=== PATIENT | female | born 1970 ===

== ENCOUNTER 2017-04-23 13:31 | Emergency (ER) | payer BC ==
--- NOTE | 2017-04-23 13:42 | EDM.PDOC ---
ED HPI GENERAL MEDICAL PROBLEM - General Chief Complaint: Chest Pain Stated Complaint: CHEST PAIN Time Seen by Provider: 04/23/17 13:35 - History of Present Illness INITIAL COMMENTS - FREE TEXT/NARRATIVE: 47-year-old female presents emergency room with chest pain. This chest pain has been going on for 2-1/2-3 hours. It is substernal radiating up into her jaw bilaterally. She does not have associated shortness of breath. The pain is quite severe at this point she rates it at a 8 or 9/10. The patient does not have a history of coronary artery disease. Family history is significant for heart attacks in both her parents her mother's was at approximately the patient's age now her father was a little older. The patient is not treated with any medications however has a history of 2 diabetes diet controlled her last hemoglobin A1c was 6.7. The patient does smoke she is not a heavy smoker she quit back in December and then started up again. - Related Data Allergies Allergy/AdvReac Type Severity Reaction Status Date / Time codeine Allergy Rash Verified 04/23/17 14:33 Sulfa (Sulfonamide Allergy Vomiting Verified 04/23/17 14:33 Antibiotics) Home Meds: Home Meds . [No Known Home Meds] 01/22/14 [History] Social & Family History - Alcohol Use Days Per Week of Alcohol Use: 0 - Recreational Drug Use Recreational Drug Use: No ED ROS GENERAL - Review of Systems Review Of Systems: See Below Constitutional: Reports: No Symptoms. Denies: Fever, Chills HEENT: Reports: No Symptoms Respiratory: Denies: Shortness of Breath, Cough, Sputum Cardiovascular: Reports: Chest Pain. Denies: Edema GI/Abdominal: Reports: No Symptoms : Reports: No Symptoms Neurological: Reports: No Symptoms ED EXAM, GENERAL - Physical Exam Exam: See Below Exam Limited By: No Limitations General Appearance: Alert, Moderate Distress Head: Atraumatic, Normocephalic Neck: Normal Inspection, Supple, Non-Tender, Full Range of Motion. No: Lymphadenopathy (L), Lymphadenopathy (R) Respiratory/Chest: No Respiratory Distress, Lungs Clear, Normal Breath Sounds Cardiovascular: Regular Rate, Rhythm, No Edema, No Murmur, Tachycardia (Mild) GI/Abdominal: Normal Bowel Sounds, Soft, Non-Tender, Other (Obese) Extremities: Normal Inspection, No Pedal Edema Neurological: Alert, Oriented, Normal Cognition EKG INTERPRETATION EKG Date: 04/23/17 Rhythm: Other (Sinus tach rate 108) [place]: LAD-Left Whitfield Deviation P-Wave: Present QRS: Other (Distorted with acute ST changes) ST-T: Other (Diagnostic ST elevation anteriorly with reciprocal changes inferiorly and laterally) QT: Normal Comparison: NA - No Prior EKG EKG Interpretation Comments: Abnormal EKG acute STEMI Course - Orders/Labs/Meds Orders: Active Orders 24 hr Category Date Time Status Chest 1V Frontal [CR] Stat Exams 04/23/17 13:42 Taken Labs: Laboratory Tests 04/23/17 04/23/17 04/23/17 Range/Units 13:40 13:40 13:42 WBC 13.10 H (3.98-10.04) K/mm3 RBC 5.55 H (3.98-5.22) M/mm3 Hgb 10.9 L (11.2-15.7) gm/L Hct 38.1 (34.1-44.9) % MCV 68.6 L (79.4-94.8) fl MCH 19.6 L (25.6-32.2) pg MCHC 28.6 L (32.2-35.5) g/dl RDW Std Deviation 48.3 H (36.4-46.3) fL Plt Count 354 (182-369) K/mm3 MPV 10.9 (9.4-12.3) fl Neutrophils % (Manual) 62 H (40-60) % Band Neutrophils % 0 (0-10) % Lymphocytes % (Manual) 30 (20-40) % Atypical Lymphs % 0 % Monocytes % (Manual) 7 (2-10) % Eosinophils % (Manual) 1 (0.7-5.8) % Basophils % (Manual) 0 L (0.1-1.2) Platelet Estimate Adequate Plt Morphology Comment Normal Polychromasia 1+ slight Hypochromasia 2+ moderate Anisocytosis 1+ slight Microcytosis 2+ moderate RBC Morph Comment Not Reportable PT 9.5 (8.0-13.0) SECONDS INR 0.88 APTT 23 (22-36) SECONDS Sodium 140 (136-145) mEq/L Potassium 4.1 (3.5-5.1) mEq/L Chloride 104 (98-107) mEq/L Carbon Dioxide 24 (21-32) mEq/L Anion Gap 16.1 H (5-15) BUN 17 (7-18) mg/dL Creatinine 1.0 (0.55-1.02) mg/dL Est Cr Clr Drug Dosing TNP Estimated GFR (MDRD) 60 (>60) mL/min BUN/Creatinine Ratio 17.0 (14-18) Glucose 189 H (74-106) mg/dL Calcium 9.1 (8.5-10.1) mg/dL Total Bilirubin 0.3 (0.2-1.0) mg/dL AST 22 (15-37) U/L ALT 26 (14-59) U/L Alkaline Phosphatase 89 (46-116) U/L Troponin I 2.364 H* (0.00-0.056) ng/mL Total Protein 8.4 H (6.4-8.2) g/dl Albumin 3.8 (3.4-5.0) g/dl Globulin 4.6 gm/dL Albumin/Globulin Ratio 0.8 L (1-2) Meds: Medications Discontinued Medications Generic Name Dose Route Start Last Admin Trade Name Lyndonq PRN Reason Stop Dose Admin Aspirin Confirm 04/23/17 14:06 Aspirin Administered 04/23/17 14:07 Dose 324 mg .ROUTE .STK-MED ONE Clopidogrel Bisulfate Confirm 04/23/17 14:07 Plavix Administered 04/23/17 14:08 Dose 75 mg .ROUTE .STK-MED ONE Clopidogrel Bisulfate Confirm 04/23/17 14:08 Plavix Administered 04/23/17 14:09 Dose 225 mg .ROUTE .STK-MED ONE Heparin Sodium (Porcine) Confirm 04/23/17 14:00 Heparin Sodium Administered 04/23/17 14:01 Dose 5,000 units .ROUTE .STK-MED ONE Heparin Sodium/Dextrose Confirm 04/23/17 14:01 Heparin 25,000 Units In D5w 500 Ml Administered 04/23/17 14:02 Dose 500 mls @ as directed .ROUTE .STK-MED ONE Nitroglycerin/Dextrose Confirm 04/23/17 14:21 Nitroglycerin 25 Mg/D5w 250 Ml Administered 04/23/17 14:22 Dose 25 mg in 250 mls @ as directed .ROUTE .STK-MED ONE Metoprolol Tartrate Confirm 04/23/17 14:41 Lopressor Administered 04/23/17 14:42 Dose 50 mg .ROUTE .STK-MED ONE Morphine Sulfate Confirm 04/23/17 13:51 Morphine Administered 04/23/17 13:52 Dose 4 mg .ROUTE .STK-MED ONE Morphine Sulfate Confirm 04/23/17 14:29 Morphine Administered 04/23/17 14:30 Dose 4 mg .ROUTE .STK-MED ONE Nitroglycerin Confirm 04/23/17 13:50 Nitrostat Administered 04/23/17 13:51 Dose 0.4 mg .ROUTE .STK-MED ONE Tenecteplase Confirm 04/23/17 13:49 Tnkase Administered 04/23/17 13:50 Dose 50 mg .ROUTE .STK-MED ONE - Re-Assessments/Exams Free Text/Narrative Re-Assessment/Exam: 04/23/17 14:49 Early on it was recognized patient was 9 with appears to be an acute STEMI case was discussed early with [facility] Graham Stover and Dr. Yung. Patient was started on early nitroglycerin and aspirin. She did have some improvement with nitroglycerin. On the legs were ordered as quickly as a chest x-ray was reviewed the chest x-ray is rotated however the aorta can be visualized and does not appear to be abnormal. After confirming no contraindications tablets were given. Prior given thrombolytics we did discuss the risks and benefits of tablets with the patient and her who verbally gave permission to use this. Patient was started on a heparin bolus and heparin drip. She had return of her pain this was followed up with sublingual nitroglycerin and later nitro drip she was given supplemental morphine. At this time the patient is been loaded up by the [place] flight crew. Patient is in stable but guarded condition Departure - Departure Time of Disposition: 14:53 Disposition: DC/Tfer to Acute Hospital 02 Reason for Transfer *Q: Other Clinical Impression: Acute myocardial infarction Referrals: PCP,None [Primary Care Provider] - Forms: ED Department Discharge - My Orders Last 24 Hours: My Active Orders 04/23/17 13:42 Chest 1V Frontal [CR] Stat - Assessment/Plan Last 24 Hours: My Active Orders 04/23/17 13:42 Chest 1V Frontal [CR] Stat
[2017-04-23] MEDS ORDERED: Morphine 2 MG/ML Syringe ONE (13:49)
[2017-04-23] MEDS ORDERED: Heparin Sodium 5,000 Units/ML Vial ONE ×2 (13:49→14:00)
[2017-04-23] MEDS ORDERED: Clopidogrel 75 MG Tab ONE ×3 (13:49→14:08)
[2017-04-23] MEDS ORDERED: Metoprolol Tartrate 25 MG Tab ONE (13:49)
[2017-04-23] MEDS ORDERED: Nitroglycerin 0.4 MG Tab.SL ONE ×2 (13:49→13:50)
[2017-04-23] MEDS ORDERED: Aspirin 81 MG Tab.Chew ONE ×2 (13:49→14:06)
[2017-04-23] MEDS ORDERED: Tenecteplase 50 MG Kit ONE ×2 (13:49)
[2017-04-23] MEDS ORDERED: Morphine 4 MG/ML Syringe ONE ×2 (13:51→14:29)
[2017-04-23] MEDS ORDERED: Heparin Sodium/D5W 500 ML ONE (14:01)
[2017-04-23] MEDS ORDERED: Heparin Sodium/D5W 500 ML IV ONE (14:02)
[2017-04-23] MEDS ORDERED: Nitroglycerin/D5W 25 MG/250 ML BOTTLE ONE (14:21)
[2017-04-23] MEDS ORDERED: Nitroglycerin/D5W 25 MG/250 ML BOTTLE IV ONE (14:22)
[2017-04-23] MEDS ORDERED: Metoprolol Tartrate 50 MG Tab ONE (14:41)
[2017-04-23 15:49] VITALS: BP 149/113
--- NOTE | 2017-04-24 08:00 | CR ---
Chest: Portable view of the chest was obtained. Comparison: Previous chest x-ray of 01/22/14. Heart size is enlarged. Pulmonary vessels are mildly congested. Old healed right upper rib fracture is noted. Impression: 1. Findings which are felt compatible with mild CHF. Diagnostic code #3
== END 2017-04-23 15:05 ==
LOC: JD.ED 13:31
DX: I21.3 ST elevation (STEMI) myocardial infarction of unspecified site (principal); E11.9 Type 2 diabetes mellitus without complications; Z88.5 Allergy status to narcotic agent; Z88.2 Allergy status to sulfonamides
CPT/HCPCS: 36415; 71010; 80053; 84484; 85025; 85610; 85730; 93005; 96361; 96365; 96368; 96374; 96375; 96376; 99285; A9270; J1644; J2270; J3101

== ENCOUNTER 2017-05-09 09:26 | Emergency (ER) | payer BC ==
[2017-05-09 09:39] VITALS: BP 108/66
[2017-05-09] MEDS ORDERED: Sodium Chloride 0.9% 10 ML Syringe FLUSH PRN (10:03)
[2017-05-09] MEDS ORDERED: Sodium Chloride 0.9% 1,000 ML IV SCH (10:15)
--- NOTE | 2017-05-09 11:17 | CR ---
Chest: Frontal view of the chest was obtained. Comparison: Previous chest x-ray of 04/23/16. Heart size slightly enlarged. Pulmonary vessels are mildly congested. Findings are stable from previous exam. Old healed rib deformity noted within the upper right chest. Impression: 1. Findings as described above. No significant change is seen from prior chest x-ray. Diagnostic code #3
[2017-05-09] MEDS ORDERED: Aspirin 81 MG Tab.Chew PO ONE (11:39)
--- NOTE | 2017-05-09 11:43 | EDM.PDOC ---
ED HPI GENERAL MEDICAL PROBLEM - General Chief Complaint: Cardiovascular Problem Stated Complaint: LOW BP-SENT FROM CLINIC Time Seen by Provider: 05/09/17 09:32 Source of Information: Reports: Patient History Limitations: Reports: No Limitations - History of Present Illness INITIAL COMMENTS - FREE TEXT/NARRATIVE: The patient presents from the clinic with a low blood pressure. The patient was seen here April 23 and she was found to have a nonSTEMI with a troponin of 2.34. She was sent to [place] in [place] and Dr Stover the main line station engineer manager of organizational development did a heart cath and she got stents. She was doing good. She is from [facility] by [place] and she came to [facility] today for a doctors appointment. She said she had some shortness of breath last night and today. She was also lightheaded. She went to see her provider Krystal Alvarez and the patient's blood pressure was low at 70 systolic. They brought her over here. She denies any chest pain. She has no fever, chills, cough, congestion or runny nose. She has no abdominal pain, nausea or vomiting. Onset: Gradual Duration: Day(s): (Last night) Severity: Mild Improves with: Reports: None Worsens with: Reports: None Associated Symptoms: Reports: Shortness of Breath. Denies: Chest Pain, Cough, Fever/Chills, Headaches, Nausea/Vomiting - Related Data Allergies Allergy/AdvReac Type Severity Reaction Status Date / Time codeine Allergy Rash Verified 05/09/17 09:34 Sulfa (Sulfonamide AdvReac Vomiting Verified 05/09/17 12:12 Antibiotics) Home Meds: Home Meds Aspirin [Ecotrin] 81 mg PO DAILY 05/05/17 [History] Clopidogrel Bisulfate [Clopidogrel] 75 mg PO DAILY 05/05/17 [History] Metoprolol Tartrate [Metoprolol Tartrate] 50 mg PO BID 05/05/17 [History] Nitroglycerin [Nitroglycerin] 0.4 mg SL ASDIRECTED PRN 05/05/17 [History] Pantoprazole Sodium [Pantoprazole Sodium] 40 mg PO DAILY 05/05/17 [History] Valsartan [Valsartan] 40 mg PO DAILY 05/05/17 [History] atorvaSTATin Calcium [Atorvastatin Calcium] 40 mg PO DAILY 05/05/17 [History] Past Medical History Cardiovascular History: Reports: High Cholesterol, HI, Stents [employer] History: Reports: Endocrine/Metabolic History: Reports: Other (See Below) Other Endocrine/Metabolic History: Runs elevated AIC of 5.8 and is controlling it with diet and exercise - Past Surgical History HEENT Surgical History: Reports: Tonsillectomy GI Surgical History: Reports: Appendectomy Female Surgical History: Reports: Section Social & Family History - Tobacco Use Smoking Status *Q: Former Smoker Years of Tobacco use: 30 Packs/Tins Daily: 0.5 Used Tobacco, but Quit: Yes Month Tobacco Last Used: march - Caffeine Use Caffeine Use: Reports: Soda - Alcohol Use Days Per Week of Alcohol Use: 0 - Recreational Drug Use Recreational Drug Use: No ED ROS GENERAL - Review of Systems Review Of Systems: See Below Constitutional: Reports: No Symptoms HEENT: Reports: No Symptoms Respiratory: Reports: Shortness of Breath. Denies: Cough Cardiovascular: Reports: Lightheadedness. Denies: Chest Pain Endocrine: Reports: No Symptoms GI/Abdominal: Reports: No Symptoms : Reports: No Symptoms Musculoskeletal: Reports: No Symptoms Skin: Reports: No Symptoms ED EXAM, GENERAL - Physical Exam Exam: See Below Exam Limited By: No Limitations General Appearance: Alert, No Apparent Distress Ears: Normal External Exam Nose: Normal Inspection Head: Atraumatic, Normocephalic Neck: Normal Inspection Respiratory/Chest: No Respiratory Distress, Lungs Clear, Normal Breath Sounds Cardiovascular: Regular Rate, Rhythm, No Edema, No Murmur GI/Abdominal: Soft, Non-Tender, No Organomegaly, No Mass Back Exam: Normal Inspection Extremities: Normal Inspection Neurological: Alert, Oriented, No Motor/Sensory Deficits EKG INTERPRETATION EKG Date: 05/09/17 Time: 10:20 Rhythm: NSR Rate (Beats/Min): 73 [place]: Normal P-Wave: Present QRS: Wide (Nonspecific intraventricular conduction delay) ST-T: Normal QT: Normal EKG Interpretation Comments: Q waves in the anterior leads with flattened T waves in the lateral leads Course - Vital Signs Last Recorded V/S: Last Vital Signs Temp 98.3 F 05/09/17 09:35 Pulse 73 05/09/17 09:35 Resp 13 05/09/17 09:35 BP 108/66 05/09/17 09:35 Pulse Ox 99 05/09/17 09:35 - Orders/Labs/Meds Orders: Active Orders 24 hr Category Date Time Status Cardiac Monitoring [RC] . DIRECTED Care 05/09/17 10:03 Active EKG 12 Lead [EKG Documentation Completion] [RC] STAT Care 05/09/17 11:19 Active EKG Documentation Completion [RC] STAT Care 05/09/17 10:04 Active Peripheral IV Care [RC] . DIRECTED Care 05/09/17 10:04 Active CBC W/O DIFF,HEMOGRAM [HEME] MOTH@0700 Lab 05/11/17 07:00 Ordered CBC W/O DIFF,HEMOGRAM [HEME] MOTH@0700 Lab 05/15/17 07:00 Ordered CBC W/O DIFF,HEMOGRAM [HEME] MOTH@0700 Lab 05/18/17 07:00 Ordered CBC W/O DIFF,HEMOGRAM [HEME] MOTH@0700 Lab 05/22/17 07:00 Ordered CBC W/O DIFF,HEMOGRAM [HEME] MOTH@0700 Lab 05/25/17 07:00 Ordered CBC W/O DIFF,HEMOGRAM [HEME] MOTH@0700 Lab 05/29/17 07:00 Ordered Heparin Sodium/D5W [Heparin 25,000 Units in D5W 500 ML] Med 05/09/17 12:15 Active 25,000 units in 500 ml IV TITRATE Sodium Chloride 0.9% [Normal Saline] 1,000 ml Med 05/09/17 10:15 Active IV .BOLUS Sodium Chloride 0.9% [Saline Flush] Med 05/09/17 10:03 Active 10 ml FLUSH ASDIRECTED PRN Peripheral IV Insertion Adult [OM.PC] Stat Oth 05/09/17 10:03 Ordered Medication Orders Sodium Chloride (Normal Saline) 1,000 mls @ 1,000 mls/hr IV .BOLUS REUBEN Last Admin: 05/09/17 10:44 Dose: 1,000 mls/hr Heparin Sodium/Dextrose (Heparin 25,000 Units In D5w 500 Ml) 25,000 units in 500 mls @ 0 mls/hr IV TITRATE REUBEN; 9 UNITS/KG/HR PRN Reason: Protocol Last Admin: 05/09/17 12:18 Dose: 20 mls/hr Sodium Chloride (Saline Flush) 10 ml FLUSH ASDIRECTED PRN PRN Reason: Keep Vein Open Last Admin: 05/09/17 10:42 Dose: 10 ml Labs: Laboratory Tests 05/09/17 05/09/17 05/09/17 Range/Units 09:40 09:40 09:40 WBC 10.96 H (3.98-10.04) K/mm3 RBC 4.76 (3.98-5.22) M/mm3 Hgb 9.3 L (11.2-15.7) gm/L Hct 33.7 L (34.1-44.9) % MCV 70.8 L (79.4-94.8) fl MCH 19.5 L (25.6-32.2) pg MCHC 27.6 L (32.2-35.5) g/dl RDW Std Deviation 50.5 H (36.4-46.3) fL Plt Count 432 H (182-369) K/mm3 MPV 11.2 (9.4-12.3) fl Neut % (Auto) 67.1 (34.0-71.1) % Lymph % (Auto) 23.9 (19.3-51.7) % [place] % (Auto) 6.3 (4.7-12.5) % Eos % (Auto) 2.2 (0.7-5.8) Baso % (Auto) 0.3 (0.1-1.2) % Neut # (Auto) 7.36 H (1.56-6.13) K/mm3 Lymph # (Auto) 2.62 (1.18-3.74) K/mm3 [place] # (Auto) 0.69 H (0.24-0.36) K/mm3 Eos # (Auto) 0.24 (0.04-0.36) K/mm3 Baso # (Auto) 0.03 (0.01-0.08) K/mm3 Manual Slide Review Abnormal smear Sodium 142 (136-145) mEq/L Potassium 4.2 (3.5-5.1) mEq/L Chloride 108 H (98-107) mEq/L Carbon Dioxide 26 (21-32) mEq/L Anion Gap 12.2 (5-15) BUN 19 H (7-18) mg/dL Creatinine 1.2 H (0.55-1.02) mg/dL Est Cr Clr Drug Dosing 53.27 mL/min Estimated GFR (MDRD) 49 (>60) mL/min BUN/Creatinine Ratio 15.8 (14-18) Glucose 143 H (74-106) mg/dL Calcium 8.9 (8.5-10.1) mg/dL Total Bilirubin 0.6 (0.2-1.0) mg/dL AST 18 (15-37) U/L ALT 18 (14-59) U/L Alkaline Phosphatase 75 (46-116) U/L Troponin I 0.785 H* (0.00-0.056) ng/mL NT-Pro-B Natriuret Pep 3630 H (0-125) pg/mL Total Protein 8.0 (6.4-8.2) g/dl Albumin 3.4 (3.4-5.0) g/dl Globulin 4.6 gm/dL Albumin/Globulin Ratio 0.7 L (1-2) HCG, Qual Negative (NEGATIVE) Meds: Medications Generic Name Dose Route Start Last Admin Trade Name Freq PRN Reason Stop Dose Admin Sodium Chloride 1,000 mls @ 1,000 mls/hr 05/09/17 10:15 05/09/17 10:44 Normal Saline IV 1,000 mls/hr .BOLUS REUBEN Administration Heparin Sodium/Dextrose 25,000 units in 500 mls @ 0 mls/hr 05/09/17 12:15 08/13 12:18 Heparin 25,000 Units In D5w 500 Ml IV 20 mls/hr TITRATE REUBEN Administration Protocol 9 UNITS/KG/HR Sodium Chloride 10 ml 05/09/17 10:03 05/09/17 10:42 Saline Flush FLUSH 10 ml ASDIRECTED PRN Administration Keep Vein Open Discontinued Medications Generic Name Dose Route Start Last Admin Trade Name Freq PRN Reason Stop Dose Admin Aspirin 324 mg 05/09/17 11:39 05/09/17 11:46 Aspirin PO 05/09/17 11:40 324 mg ONETIME ONE Administration Heparin Sodium (Porcine) 5,000 units 05/09/17 12:04 05/09/17 12:13 Heparin Sodium IVPUSH 05/09/17 12:05 5,000 units ONETIME ONE Administration - Re-Assessments/Exams Free Text/Narrative Re-Assessment/Exam: 05/09/17 12:27 I ordered an IV NS 1L bolus, labs, EKG, and CXR. Her CXR looks good. Her EKG shows a NSR with no acute changes. Her CBC was elevated at 10.96. Her creatinine was elevated at 1.2. Her glucose was elevated at 143. Her troponin was elevated at 0.785. Her BNP was elevated at 3630. I am concerned she may be having an HI. I ordered aspirin. I called Dr Posada the main line station engineer manager of organizational development at [place] and he thought this could be another nonSTEMI. He requested she come down to [place]. I talked with the hospitalist Dr Fung and he also accepted the patient. I ordered a heparin bolus and drip. Departure - Departure Time of Disposition: 12:35 Disposition: DC/Tfer to [facility] 02 Reason for Transfer *Q: Other Condition: Serious Clinical Impression: Non-STEMI (non-ST elevated myocardial infarction), Elevated brain natriuretic peptide (BNP) level, SOB (shortness of breath) Referrals: PCP,None [Primary Care Provider] - Forms: ED Department Discharge - My Orders Last 24 Hours: My Active Orders 05/09/17 10:03 Cardiac Monitoring [RC] . DIRECTED Sodium Chloride 0.9% [Saline Flush] 10 ml FLUSH ASDIRECTED PRN Peripheral IV Insertion Adult [OM.PC] Stat 05/09/17 10:04 EKG Documentation Completion [RC] STAT Peripheral IV Care [RC] . DIRECTED 05/09/17 10:15 Sodium Chloride 0.9% [Normal Saline] 1,000 ml IV .BOLUS 05/09/17 11:19 EKG 12 Lead [EKG Documentation Completion] [RC] STAT 05/09/17 12:15 Heparin Sodium/D5W [Heparin 25,000 Units in D5W 500 ML] 25,000 units in 500 ml IV TITRATE 05/11/17 07:00 CBC W/O DIFF,HEMOGRAM [HEME] MOTH@0700 05/15/17 07:00 CBC W/O DIFF,HEMOGRAM [HEME] MOTH@00 05/18/17 07:00 CBC W/O DIFF,HEMOGRAM [HEME] MOTH@0700 05/22/17 07:00 CBC W/O DIFF,HEMOGRAM [HEME] MOTH@0700 05/25/17 07:00 CBC W/O DIFF,HEMOGRAM [HEME] MOTH@0700 05/29/17 07:00 CBC W/O DIFF,HEMOGRAM [HEME] MOTH@0700 - Assessment/Plan Last 24 Hours: My Active Orders 05/09/17 10:03 Cardiac Monitoring [RC] . DIRECTED Sodium Chloride 0.9% [Saline Flush] 10 ml FLUSH ASDIRECTED PRN Peripheral IV Insertion Adult [OM.PC] Stat 05/09/17 10:04 EKG Documentation Completion [RC] STAT Peripheral IV Care [RC] . DIRECTED 05/09/17 10:15 Sodium Chloride 0.9% [Normal Saline] 1,000 ml IV .BOLUS 05/09/17 11:19 EKG 12 Lead [EKG Documentation Completion] [RC] STAT 05/09/17 12:15 Heparin Sodium/D5W [Heparin 25,000 Units in D5W 500 ML] 25,000 units in 500 ml IV TITRATE 05/11/17 07:00 CBC W/O DIFF,HEMOGRAM [HEME] MOTH@0700 05/15/17 07:00 CBC W/O DIFF,HEMOGRAM [HEME] MOTH@0700 05/18/17 07:00 CBC W/O DIFF,HEMOGRAM [HEME] MOTH@0705/22/17 07:00 CBC W/O DIFF,HEMOGRAM [HEME] MOTH@0700 05/25/17 07:00 CBC W/O DIFF,HEMOGRAM [HEME] MOTH@0700 05/29/17 07:00 CBC W/O DIFF,HEMOGRAM [HEME] MOTH@07
[2017-05-09] MEDS ORDERED: Heparin Sodium 5,000 Units/ML Vial IVPUSH ONE (12:04)
[2017-05-09] MEDS ORDERED: Heparin Sodium/D5W 25,000 UNITS/500 ML BAG IV SCH (12:15)
== END 2017-05-09 12:50 ==
LOC: JD.ED 09:26
DX: I21.4 Non-ST elevation (NSTEMI) myocardial infarction (principal); R79.89 Other specified abnormal findings of blood chemistry; E78.00 Pure hypercholesterolemia, unspecified; Z90.49 Acquired absence of other specified parts of digestive tract; Z98.890 Other specified postprocedural states; Z87.891 Personal history of nicotine dependence; Z79.899 Other long term (current) drug therapy; Z88.2 Allergy status to sulfonamides; Z88.5 Allergy status to narcotic agent; Z79.02 Long term (current) use of antithrombotics/antiplatelets; Z79.82 Long term (current) use of aspirin
CPT/HCPCS: 36415; 71010; 80053; 83880; 84484; 84703; 85025; 93005; 96361; 96365; 96376; 99285; A9270; J1644; J7040; J7050